=== PATIENT | female | born 1960 | race African-American/Black ===

== ENCOUNTER 2016-07-02 13:59 | Emergency (ER) | payer OTHER ==
[~2016-07-02] VITALS: Ht 149.9 cm; Wt 67.3 kg
[~2016-07-02 13:59] MED LIST: AUGMENTIN875 MG PO; BENADRYL50 MG PO; LISINOPRIL40 MG PO; MEDROL DOSEPAK4 MG PO; ZOCOR40 MG PO; ZOCOR80 MG
[2016-07-02] MEDS ORDERED: FLEXERIL10 MG PO (18:46)
[2016-07-02] MEDS ORDERED: NAPROSYN500 MG PO (18:46)
[2016-07-02 18:53] VITALS: BP 139/76
== END 2016-07-02 18:58 | disposition home or self-care (01) ==
LOC: EME 13:59
DX: S86.912A Strain of unspecified muscle(s) and tendon(s) at lower leg level, left leg, initial encounter (principal); X58.XXXA Exposure to other specified factors, initial encounter; R07.9 Chest pain, unspecified; R20.2 Paresthesia of skin; R60.0 Localized edema; I10 Essential (primary) hypertension; E78.5 Hyperlipidemia, unspecified; F17.200 Nicotine dependence, unspecified, uncomplicated
CPT/HCPCS: 93971; 99281; 99284